=== PATIENT | male | born 1945 | race Caucasian/White ===

== ENCOUNTER → 2017-01-05 | Day surgery (SDC) | payer MEDICARE, BC ==
[~2017-01-05] MED LIST: Lactated Ringers 1,000 ML IV SCH; Propofol 200 MG/20 ML SDV IV ONE
--- NOTE | 2017-01-05 10:40 | OR ---
DATE OF OPERATION: 01/05/2017 PREOPERATIVE DIAGNOSIS: POSITIVE COLOGUARD. POSTOPERATIVE DIAGNOSIS: POSITIVE COLOGUARD. SURGEON: Benjamín Johnson MD PROCEDURE: FULL-LENGTH COLONOSCOPY WITH POLYP REMOVAL X1. ANESTHESIA: DOPSTER due to recent aortic valve repair. COMPLICATIONS: None. SPECIMEN: Cecal polyp. FINDINGS: 1. Full-length colonoscopy. 2. Moderate sigmoid diverticulosis. 3. Marginal prep. 4. Small villous polyp in proximal ascending colon/cecum. RECOMMENDATIONS: Followup colonoscopy in 5 years pending path report. INDICATIONS: The patient was in for a physical. He has never had a prior colonoscopy. Did do a Cologuard which was positive. Dr. Garrett sent him for diagnostic procedure. DESCRIPTION OF PROCEDURE: The patient was prepped and draped, placed in the left lateral decubitus position. A lubricated Olympus colonoscope was inserted and easily advanced to the cecum. We were able to directly visualize the ileocecal valve and appendiceal orifice. The bowel prep was marginal. There was a lot of thicker consistent stool throughout many areas of the colon, kind of just scattered. Some of these were able to be suctioned. Many were too thick to do so. Upon withdrawal, the cecal pouch itself looked fine. Just on the backside of the valve in the proximal ascending colon, the patient had 1 flat villous adenoma, looked benign, possibly even hyperplastic, removed it with 3 cold forceps biopsies in its entirety. The rest of the ascending and transverse colon were grossly benign. Some areas were difficult to visualize here. Descending colon was unremarkable. Throughout the sigmoid colon, the patient has fairly prominent diverticular disease, moderate in severity. No acute inflammatory changes were seen. I could find no other polyps, masses, ulceration, bleeding sites or vascular abnormalities. There were no signs of colitis. The rectal vault was unremarkable. Retroflexion of scope in the rectum showed no anal lesions. Air was then suctioned. Scope removed without complication. JOSE/LESTER /[id number]
== END ==
LOC: CC.SDS 07:57
PROVIDERS: ATTEND Family Medicine
DX: Z12.11 Encounter for screening for malignant neoplasm of colon (principal); D12.0 Benign neoplasm of cecum; K57.30 Diverticulosis of large intestine without perforation or abscess without bleeding; F41.9 Anxiety disorder, unspecified; N40.1 Benign prostatic hyperplasia with lower urinary tract symptoms; R35.1 Nocturia; K21.9 Gastro-esophageal reflux disease without esophagitis; I10 Essential (primary) hypertension; E78.00 Pure hypercholesterolemia, unspecified; E55.9 Vitamin D deficiency, unspecified; Z95.2 Presence of prosthetic heart valve; Z79.82 Long term (current) use of aspirin; Z79.899 Other long term (current) drug therapy
CPT/HCPCS: 45380; J2704; J7120; 00810; 88305